=== PATIENT | female | born 1995 | race African-American/Black ===

== ENCOUNTER 2020-03-28 17:01 | Emergency (ER) | payer OTHER ==
[~2020-03-28] VITALS: Ht 175.3 cm; Wt 74.0 kg
[2020-03-28 20:57] VITALS: BP 117/64
== END 2020-03-28 20:58 | disposition home or self-care (01) ==
LOC: ER 17:01
DX: Z00.00 Encounter for general adult medical examination without abnormal findings (principal)
CPT/HCPCS: 71045; 81025; 93005; 99283